=== PATIENT | female | born 1980 | race Caucasian/White ===

== ENCOUNTER 2016-11-23 16:12 | Emergency (ER) | payer OTHER ==
[~2016-11-23] VITALS: Ht 172.7 cm; Wt 80.7 kg
[2016-11-23 16:24] VITALS: BP 128/74
[2016-11-23] MEDS ORDERED: DEXAMETHASONE 4 MG TABLET ONE (17:14)
[2016-11-23] MEDS ORDERED: DEXAMETHASONE 4 MG TABLET PO ONE (17:30)
== END 2016-11-23 17:43 | disposition home or self-care (01) ==
LOC: ED 17:37
DX: J03.01 Acute recurrent streptococcal tonsillitis (principal)
CPT/HCPCS: 99283